=== PATIENT | female | born 1995 | race Caucasian/White ===

== ENCOUNTER → 2016-12-23 | Outpatient (CLI) | payer OTHER ==
[~2016-12-23] MED LIST: ISOVUE-370 76% 100ML VIAL (Q9967) As Ordered ONE
--- NOTE | 2016-12-23 15:26 | REP ---
HYSTEROSALPINGOGRAM: Hysterosalpingogram is attempted. The patient's cervix is catheterized by the referring clinician who injected the contrast. However, multiple attempts were made at the injection and the hysterosalpingogram catheter immediately was expulsed from the cervix. Contrast is noted to fill the uterine cavity on two spot images obtained. No definite filling defect is seen in the uterine cavity. Much of the left fallopian tube is visualized and is normal in caliber. The right fallopian tube is not visualized. There is no free intraperitoneal spillage identified, but again only limited contrast could be injected due to repeated expulsion of the catheter and inadequate contrast injection. IMPRESSION: Adequate hysterosalpingogram could not be performed. The cervix was catheterized multiple times, but each time the contrast was injected, the catheter was immediately expulsed from the cervix. Limited spot radiographs obtained show no definite filling defect in the uterine cavity. Most of the left fallopian tube is visualized and is normal in caliber. However, insufficient contrast was injected to evaluate for fallopian tube patency. 30 seconds of fluoroscopy time was utilized. Signed by Keith Heath MD 12/24/2016 04:45 P
== END ==
LOC: M RADPRO 11:40
PROVIDERS: ATTEND Obstetrics & Gynecology
DX: N97.9 Female infertility, unspecified (principal)
CPT/HCPCS: 58340; 74740; Q9967

== ENCOUNTER 2017-02-14 17:59 | Emergency (ER) | payer OTHER ==
[~2017-02-14] VITALS: Ht 162.6 cm; Wt 105.0 kg
[2017-02-14 18:00] VITALS: BP 142/79
[2017-02-14] MEDS ORDERED: NITROFURANTOIN (MACROBID) 100 MG CAP PO ONE (18:45)
[2017-02-14] MEDS ORDERED: PHENAZOPYRIDINE 100 MG TAB PO ONE (18:45)
[2017-02-14] MEDS ORDERED: MACR100C43 PO (18:53)
[2017-02-14] MEDS ORDERED: PYRI1TAB5 PO (18:53)
[2017-04-07] MEDS ORDERED: PRENTAB9 PO (08:00)
[2017-04-07] MEDS ORDERED: METF500T13 PO (08:00)
[2017-04-07] MEDS ORDERED: MAGN1TAB25 PO (08:00)
[2017-04-07] MEDS ORDERED: FISH100049 PO (08:00)
[2017-04-07] MEDS ORDERED: PROAAER10 INH (08:00)
[2017-04-07] MEDS ORDERED: VITATAB22 PO (08:00)
== END 2017-02-14 18:59 | disposition home or self-care (01) ==
LOC: M ED 18:43
DX: N30.01 Acute cystitis with hematuria (principal); B96.29 Other Escherichia coli [E. coli] as the cause of diseases classified elsewhere

== ENCOUNTER 2017-04-14 08:08 | Day surgery (SDC) | payer OTHER ==
[~2017-04-14] VITALS: Ht 162.6 cm; Wt 103.9 kg
[~2017-04-14 08:08] MED LIST changes: +BUPIVACAINE HCL 0.25% 30 ML VIAL As Ordered ONE; +FISH100049 PO; +GLYCOPYRROLATE INJ 0.2 MG/ML 2 ML VIAL As Ordered ONE; -ISOVUE-370 76% 100ML VIAL (Q9967) As Ordered ONE; +KETOROLAC 60 MG/2 ML VIAL (J1885) As Ordered ONE; +LIDOCAINE 2% INJ 100 MG/5 ML SDV (FOR ANES.) As Ordered ONE; +MACR100C43 PO; +MAGN1TAB25 PO; +METF500T13 PO; +METHYLENE BLUE 0.5% (5MG/ML) 10 ML AMP (PROVAYBLUE)(Q9968 PER 1MG) As Ordered ONE; +NEOSTIGMINE 1MG/ML 5 ML SYRINGE (J2710) As Ordered ONE; +ONDANSETRON 4MG/2ML VIAL (J2405) As Ordered ONE; +PRENTAB9 PO; +PROAAER10 INH; +PROPOFOL 200 MG/20 ML VIAL As Ordered ONE; +PYRI1TAB5 PO; +ROCURONIUM BROMIDE 50 MG/5 ML VIAL/SYRINGE As Ordered ONE; +VITATAB22 PO; +dexameTHASONE 4 MG/ML 1ML VIAL (J1100) As Ordered ONE
[2017-04-14] MEDS ORDERED: LR 1,000 ML IV ONE (08:15)
[2017-04-14] MEDS ORDERED: LR 1,000 ML IV SCH ×2 (08:15→10:30)
[2017-04-14] MEDS ORDERED: MIDAZOLAM INJ 2 MG/2 ML VIAL (J2250) As Ordered ONE (08:33)
[2017-04-14] MEDS ORDERED: fentaNYL 100 MCG/2 ML INJECTION (J3010) As Ordered ONE ×3 (08:33→12:10)
[2017-04-14 08:46] LABS: MEAN CORPUSCULAR HGB CONC 33.9 g/dl (32.0-36.5); MEAN CORPUSCULAR VOLUME 88.5 fl (80.0-96.0); RED CELL DISTRIBUTION WIDTH 12.6 % (11.5-14.5); WHITE BLOOD COUNT 7.8 K/mm3 (4.0-10.0)
[2017-04-14 08:58] LABS: CONTROL LINE HCG INT CTR LINE PRESENT
[2017-04-14] MEDS ORDERED: MEPERIDINE INJ 25 MG/ML VIAL (J2175) IV PRN (10:30)
[2017-04-14] MEDS ORDERED: ONDANSETRON 4MG/2ML VIAL (J2405) IV PRN (10:30)
[2017-04-14] MEDS ORDERED: fentaNYL 100 MCG/2 ML INJECTION (J3010) IV PRN (10:30)
[2017-04-14] MEDS ORDERED: METOCLOPRAMIDE INJ 10MG/2ML VIAL (J2765) IV PRN (10:30)
[2017-04-14] MEDS ORDERED: PERCOCET 5MG/325MG TAB PO PRN (10:30)
[2017-04-14 11:50] VITALS: BP 136/72
== END 2017-04-14 12:00 | disposition home or self-care (01) ==
LOC: M SDC 08:08
PROVIDERS: ATTEND Obstetrics & Gynecology
DX: E28.2 Polycystic ovarian syndrome (principal); E66.9 Obesity, unspecified; Z79.899 Other long term (current) drug therapy
CPT/HCPCS: 36415; 49320; 58350; 58558; 84703; 85027; 86850; 86900; 86901; J1100; J1885; J2250; J2405; J2710; J3010; Q9968

== ENCOUNTER → 2021-11-05 | Outpatient (REF) | payer OTHER ==
[~2021-11-05] MED LIST changes: -BUPIVACAINE HCL 0.25% 30 ML VIAL As Ordered ONE; -GLYCOPYRROLATE INJ 0.2 MG/ML 2 ML VIAL As Ordered ONE; -KETOROLAC 60 MG/2 ML VIAL (J1885) As Ordered ONE; -LIDOCAINE 2% INJ 100 MG/5 ML SDV (FOR ANES.) As Ordered ONE; -MAGN1TAB25 PO; +MAGN1TAB26 PO; -METHYLENE BLUE 0.5% (5MG/ML) 10 ML AMP (PROVAYBLUE)(Q9968 PER 1MG) As Ordered ONE; -NEOSTIGMINE 1MG/ML 5 ML SYRINGE (J2710) As Ordered ONE; -ONDANSETRON 4MG/2ML VIAL (J2405) As Ordered ONE; -PROPOFOL 200 MG/20 ML VIAL As Ordered ONE; -ROCURONIUM BROMIDE 50 MG/5 ML VIAL/SYRINGE As Ordered ONE; -dexameTHASONE 4 MG/ML 1ML VIAL (J1100) As Ordered ONE
== END ==
LOC: M SFHCRHEU 09:14
PROVIDERS: ATTEND Internal Medicine Rheumatology
DX: Z53.20 Procedure and treatment not carried out because of patient's decision for unspecified reasons (principal)

== ENCOUNTER → 2022-10-05 | Outpatient (CLI) | payer OTHER ==
[2022-10-05 12:12] LABS: BASO % 0.5 % (0.0-1.0); EOS # 0.3 10^3/uL (0.0-0.5); EOS % 4.4 % (0.0-3.0); HEMATOCRIT 44.3 % (36.0-47.0); HEMOGLOBIN 14.5 g/dl (12.0-15.5); LYMPH # 2.1 10^3/uL (1.5-5.0); LYMPH % 27.1 % (24.0-44.0); MEAN CORPUSCULAR HEMOGLOBIN 30.1 pg (27.0-33.0); MEAN CORPUSCULAR HGB CONC 32.7 g/dl (32.0-36.5); MEAN CORPUSCULAR VOLUME 92.1 fl (80.0-96.0); MONO # 0.5 10^3/uL (0.0-0.8); MONO % 6.3 % (2.0-8.0); NEUTROPHILS # 4.6 10^3/uL (1.5-8.5); NEUTROPHILS % 61.2 % (36.0-66.0); PLATELET COUNT, AUTOMATED 316 10^3/uL (150-450); RED BLOOD COUNT 4.81 10^6/uL (4.00-5.40); WHITE BLOOD COUNT 7.6 10^3/uL (4.0-10.0)
[2022-10-05 12:17] LABS: URIC ACID 7.9 MG/DL (3.1-7.8)
[2022-10-05 12:19] LABS: FREE T4 1.04 NG/DL (0.89-1.76); LUTEINIZING HORMONE 9.1 mIU/ML
[2022-10-05 12:20] LABS: ALBUMIN 4.1 G/DL (3.2-5.2); ALKALINE PHOSPHATASE 106 U/L (46-116); ALT/SGPT 69 U/L (7.0-40); AST/SGOT 41 U/L (<34); BILIRUBIN,TOTAL 0.4 MG/DL (0.3-1.2); BLOOD UREA NITROGEN 11 MG/DL (9-23); CALCIUM LEVEL 9.8 MG/DL (8.5-10.1); CARBON DIOXIDE LEVEL 29 MMOL/L (20-31); CHLORIDE LEVEL 102 MMOL/L (98-107); CHOLESTEROL LEVEL 237 MG/DL (<200); CHOLESTEROL RISK RATIO 5.83 (<5); CREATININE FOR GFR 0.64 MG/DL (0.55-1.30); GLOMERULAR FILTRATION RATE > 60.0 (>60); GLUCOSE, FASTING 101 MG/DL (60-100); HDL CHOLESTEROL 40.6 MG/DL (>40); NON-HDL-C 196 MG/DL; POTASSIUM SERUM 4.4 MMOL/L (3.5-5.1); RHEUMATOID FACTOR QUANT < 3.5 IU/ML (<14); SODIUM LEVEL 136 MMOL/L (136-145); THYROID STIMULATING HORMONE 2.369 uIU/ML (0.55-4.78); TOTAL 25(OH) VITAMIN D 25.4 NG/ML (20.0-100.0); TOTAL PROTEIN 7.6 G/DL (5.7-8.2); TRIGLYCERIDES LEVEL 257 MG/DL (<150)
[2022-10-05 12:21] LABS: FOLATE 22.86 NG/ML (>5.4); VITAMIN B12 LEVEL 699 PG/ML (211-911)
[2022-10-05 12:29] LABS: HEMOGLOBIN A1c 5.7 % (4.0-6.0)
[2022-10-05 12:56] LABS: ERYTHROCYTE SEDIMENTATION RATE 32 mm/hr (0-20)
== END ==
LOC: M WUC 09:42
PROVIDERS: ATTEND Physician Assistant
DX: R53.83 Other fatigue (principal); R73.01 Impaired fasting glucose; E78.5 Hyperlipidemia, unspecified

== ENCOUNTER 2023-02-03 21:05 | Inpatient (IN) | payer OTHER ==
[~2023-02-03] VITALS: Ht 162.6 cm; Wt 111.3 kg
[2023-02-03] MEDS ORDERED: MED REC IN PROGRESS XX SCH (22:15)
[2023-02-03] MEDS ORDERED: LORazepam 1 MG TAB PO ONE (22:20)
[2023-02-03 22:26] LABS: HEMATOCRIT 42.6 % (36.0-47.0); HEMOGLOBIN 14.4 g/dl (12.0-15.5); MEAN CORPUSCULAR HEMOGLOBIN 30.1 pg (27.0-33.0); MEAN CORPUSCULAR HGB CONC 33.8 g/dl (32.0-36.5); MEAN CORPUSCULAR VOLUME 88.9 fl (80.0-96.0); PLATELET COUNT, AUTOMATED 369 10^3/uL (150-450); RED BLOOD COUNT 4.79 10^6/uL (4.00-5.40); WHITE BLOOD COUNT 11.3 10^3/uL (4.0-10.0)
[2023-02-03 22:51] LABS: BARBITURATES URINE NEGATIVE (NEGATIVE); BENZODIAZEPINES URINE NEGATIVE (NEGATIVE); COCAINE METABOLITE URINE NEGATIVE (NEGATIVE); METHADONE URINE NEGATIVE (NEGATIVE); OPIATES URINE NEGATIVE (NEGATIVE); PHENCYCLIDINE URINE NEGATIVE (NEGATIVE)
[2023-02-03 22:54] LABS: ETHYL ALCOHOL (ETHANOL) < 0.003 % (0.000-0.010)
[2023-02-03 22:55] LABS: ACETAMINOPHEN LEVEL < 2.0 UG/ML (10.0-20.0); ALBUMIN 4.3 G/DL (3.2-5.2); ALKALINE PHOSPHATASE 105 U/L (46-116); ALT/SGPT 61 U/L (7.0-40); AST/SGOT 24 U/L (<34); BILIRUBIN,DIRECT < 0.1 MG/DL (<0.4); BILIRUBIN,TOTAL 0.3 MG/DL (0.3-1.2); BLOOD UREA NITROGEN 13 MG/DL (9-23); CALCIUM LEVEL 9.7 MG/DL (8.5-10.1); CARBON DIOXIDE LEVEL 26 MMOL/L (20-31); CHLORIDE LEVEL 104 MMOL/L (98-107); CREATININE FOR GFR 0.68 MG/DL (0.55-1.30); GLOMERULAR FILTRATION RATE > 60.0 (>60); GLUCOSE, FASTING 87 MG/DL (60-100); POTASSIUM SERUM 3.9 MMOL/L (3.5-5.1); SALICYLATE LEVEL < 3.0 MG/DL (<30); SODIUM LEVEL 138 MMOL/L (136-145)
[2023-02-03 22:56] LABS: AMPHETAMINES LEVEL URINE POSITIVE (NEGATIVE); CANNABINOIDS URINE POSITIVE (NEGATIVE)
[2023-02-03 22:58] LABS: THYROID STIMULATING HORMONE 3.384 uIU/ML (0.55-4.78)
[2023-02-03 23:06] LABS: HCG, SERUM QUALITATIVE NEGATIVE (NEGATIVE)
[2023-02-03] MEDS ORDERED: traZODone 50 MG TAB PO PRN (23:20)
[2023-02-03] MEDS ORDERED: MOM 30ML SUSPENSION UDC PO PRN (23:20)
[2023-02-03] MEDS ORDERED: ACETAMINOPHEN TAB 650MG DOSE (2X325MG) PO PRN (23:20)
[2023-02-03] MEDS ORDERED: MAALOX 30 ML SUSP *UDC PO PRN (23:20)
[2023-02-03] MEDS ORDERED: ALBU8.5H INH (23:24)
[2023-02-03] MEDS ORDERED: METF-838 PO (23:24)
[2023-02-03] MEDS ORDERED: ADDE10CA3 PO (23:24)
[2023-02-03] MEDS ORDERED: MULTTAB20 PO (23:24)
[2023-02-03] MEDS ORDERED: DULO60CA35 PO (23:24)
[2023-02-03] MEDS ORDERED: CO Q100C PO (23:24)
[2023-02-03] MEDS ORDERED: VITA500030 PO (23:24)
[2023-02-03] MEDS ORDERED: OMEG10002 PO (23:24)
[2023-02-03] MEDS ORDERED: SPIR50TA4 PO (23:24)
[2023-02-03] MEDS ORDERED: HOME MED LIST COMPLETE! XX SCH (23:25)
[2023-02-04 00:55] VITALS: BP 119/78; TEMP 98.3; O2SAT 98
[2023-02-04 06:34] VITALS: BP 113/69; TEMP 98; O2SAT 98
[2023-02-04] MEDS ORDERED: NICOTINE 21MG/24HR 1 EA TRANSDERMAL TD SCH (09:00)
[2023-02-04] MEDS ORDERED: ALBUTEROL 90 MCG/ACT 8GM HFA INHALER INH PRN (11:20)
[2023-02-04] MEDS ORDERED: EXCEDRIN MIGRAINE TABLET PO PRN (11:20)
[2023-02-04] MEDS ORDERED: GABAPENTIN 100 MG CAP PO PRN (11:50)
[2023-02-04] MEDS: SPIRONOLACTONE 50 MG TAB PO SCH (11:59)
[2023-02-04] MEDS: DULoxetine 30MG CAPSULE (CYMBALTA) PO SCH (11:59)
[2023-02-04] MEDS: MAGNESIUM OXIDE 400MG TAB (MAG-OX) PO SCH (12:00)
[2023-02-04] MEDS: metFORMIN XR 500MG TAB *GLUCOPHAGE XR PO SCH ×2 (12:00→20:00)
[2023-02-04] MEDS: OMEGA-3 1000MG CAPSULE PO SCH ×2 (12:01→20:00)
[2023-02-04] MEDS: VITAMIN D 1,000 INTERNATIONAL UNITS TABLET PO SCH (12:01)
[2023-02-04 18:29] VITALS: BP 132/77; TEMP 97.3; O2SAT 97
[2023-02-05 06:06] VITALS: BP 134/75; TEMP 97.3; O2SAT 97
[2023-02-05] MEDS: SPIRONOLACTONE 50 MG TAB PO SCH (07:39)
[2023-02-05] MEDS: metFORMIN XR 500MG TAB *GLUCOPHAGE XR PO SCH ×2 (07:39→21:16)
[2023-02-05] MEDS: VITAMIN D 1,000 INTERNATIONAL UNITS TABLET PO SCH (07:39)
[2023-02-05] MEDS: OMEGA-3 1000MG CAPSULE PO SCH ×2 (07:39→21:16)
[2023-02-05] MEDS: MAGNESIUM OXIDE 400MG TAB (MAG-OX) PO SCH (07:40)
[2023-02-05] MEDS: DULoxetine 30MG CAPSULE (CYMBALTA) PO SCH (07:40)
[2023-02-05 07:54] LABS: CHOLESTEROL RISK RATIO 5.55 (<5); HDL CHOLESTEROL 33.1 MG/DL (>40); LDL CHOLESTEROL 112.3 MG/DL (<100); NON-HDL-C 150.9 MG/DL
[2023-02-05] MEDS: NEOSPORIN TOP OINT 15GM TOP SCH ×2 (13:30→21:17)
[2023-02-05] MEDS: IBUPROFEN 400MG TAB PO PRN (14:45)
[2023-02-05 16:50] VITALS: BP 137/74; TEMP 98.4; O2SAT 98
[2023-02-06 06:29] VITALS: BP 130/67; TEMP 98.2; O2SAT 99
[2023-02-06] MEDS: diphenhydrAMINE 25MG CAP PO PRN ×2 (06:39→20:44)
[2023-02-06] MEDS: OMEGA-3 1000MG CAPSULE PO SCH ×2 (08:31→20:44)
[2023-02-06] MEDS: DULoxetine 30MG CAPSULE (CYMBALTA) PO SCH (08:32)
[2023-02-06] MEDS: VITAMIN D 1,000 INTERNATIONAL UNITS TABLET PO SCH (08:32)
[2023-02-06] MEDS: metFORMIN XR 500MG TAB *GLUCOPHAGE XR PO SCH ×2 (08:32→20:44)
[2023-02-06] MEDS: SPIRONOLACTONE 50 MG TAB PO SCH (08:32)
[2023-02-06] MEDS: MAGNESIUM OXIDE 400MG TAB (MAG-OX) PO SCH (08:32)
[2023-02-06] MEDS: NEOSPORIN TOP OINT 15GM TOP SCH ×2 (08:33→20:44)
[2023-02-06 16:12] VITALS: BP 144/85; TEMP 98.1; O2SAT 99
[2023-02-07 06:39] VITALS: BP 129/68; TEMP 97.3; O2SAT 99
[2023-02-07] MEDS: DULoxetine 30MG CAPSULE (CYMBALTA) PO SCH (07:38)
[2023-02-07] MEDS: MAGNESIUM OXIDE 400MG TAB (MAG-OX) PO SCH (07:38)
[2023-02-07] MEDS: VITAMIN D 1,000 INTERNATIONAL UNITS TABLET PO SCH (07:38)
[2023-02-07] MEDS: OMEGA-3 1000MG CAPSULE PO SCH ×2 (07:38→20:07)
[2023-02-07] MEDS: SPIRONOLACTONE 50 MG TAB PO SCH (07:39)
[2023-02-07] MEDS: metFORMIN XR 500MG TAB *GLUCOPHAGE XR PO SCH ×2 (07:39→20:07)
[2023-02-07] MEDS: NEOSPORIN TOP OINT 15GM TOP SCH ×2 (07:39→20:08)
[2023-02-07] MEDS: IBUPROFEN 400MG TAB PO PRN (13:26)
[2023-02-07 16:08] VITALS: BP 125/86; TEMP 97.4; O2SAT 97
[2023-02-08 06:28] VITALS: BP 133/76; TEMP 97.3; O2SAT 99
[2023-02-08] MEDS: VITAMIN D 1,000 INTERNATIONAL UNITS TABLET PO SCH (08:03)
[2023-02-08] MEDS: OMEGA-3 1000MG CAPSULE PO SCH (08:03)
[2023-02-08] MEDS: MAGNESIUM OXIDE 400MG TAB (MAG-OX) PO SCH (08:03)
[2023-02-08] MEDS: metFORMIN XR 500MG TAB *GLUCOPHAGE XR PO SCH (08:03)
[2023-02-08] MEDS: DULoxetine 30MG CAPSULE (CYMBALTA) PO SCH (08:03)
[2023-02-08] MEDS: SPIRONOLACTONE 50 MG TAB PO SCH (08:03)
[2023-02-08] MEDS: NEOSPORIN TOP OINT 15GM TOP SCH (08:05)
[2023-02-08] MEDS ORDERED: DULO1CAP6 PO (08:28)
[2023-02-08] MEDS ORDERED: NEOM28OI TOP (08:28)
[2023-02-08] MEDS ORDERED: CYMB1CAP5 PO (08:28)
[2023-02-08] MEDS ORDERED: GABA-1171 PO (08:28)
== END 2023-02-08 12:08 | disposition home or self-care (01) | DRG 885 ==
LOC: M ED 21:05 → M ED INP 23:19 → M PSY 02-04 00:39
PROVIDERS: ADMIT Student in an Organized Health Care Education/Training Program; ATTEND Student in an Organized Health Care Education/Training Program
DX: F33.1 Major depressive disorder, recurrent, moderate (principal); R45.851 Suicidal ideations; F12.90 Cannabis use, unspecified, uncomplicated; F60.89 Other specific personality disorders; E28.2 Polycystic ovarian syndrome; Z79.899 Other long term (current) drug therapy; J45.20 Mild intermittent asthma, uncomplicated; E66.01 Morbid (severe) obesity due to excess calories; E83.42 Hypomagnesemia; E88.81 Metabolic syndrome and other insulin resistance; M19.90 Unspecified osteoarthritis, unspecified site; R73.03 Prediabetes; R21 Rash and other nonspecific skin eruption